=== PATIENT | female | born 1935 | race Caucasian/White ===

== ENCOUNTER 2020-05-22 10:51 | Emergency (ER) | payer OTHER ==
[~2020-05-22] VITALS: Ht 162.5 cm; Wt 45.4 kg
[~2020-05-22 10:51] MED LIST: AMLODIPINE BESYL5 MG PO; CARBAMAZEPINE200 M1 PO; CLARITIN10 MG PO; DARVOCET N 1001 TAB PO; EPI EZ PEN1 MG/ML IM; HYDR25T PO; K-LOR 20MEQ20 ME1 PO; KEFLEX500 MG PO; NKHM; TEGRETOL100 MG PO; VICODIN 5/500 505 MG PO; VICODIN 500 MG-1 TAB PO; ZIAC 10 MG-6.251 TAB PO; ZOFRAN4 MG PO; ZONEGRAN100 MG PO
[2020-05-22 11:38] LABS: ACT PARTIAL THROMBO TIME 26.5 SECONDS (20.0-32.1); BASO % 0.3 % (0.0-1.0); EOS # 0.2 10*3/uL (0.0-0.4); EOS % 1.8 % (1.0-4.0); HEMATOCRIT 40.1 % (37.0-47.0); LYMPH # 1.5 10*3/uL (1.3-4.4); LYMPH % 15.6 % (27.0-41.0); MEAN CELL VOLUME 98.3 fl (81.0-99.0); MEAN CORPUSCULAR HGB 30.9 pg (27.0-31.0); MEAN CORPUSCULAR HGB CONC 31.4 g/dl (33.0-37.0); MEAN PLATELET VOLUME 9.2 fl (9.6-12.3); MONO # 0.8 10*3/uL (0.1-1.0); MONO % 7.7 % (3.0-9.0); NEUT # 7.3 10*3/uL (2.3-7.9); PLATELET COUNT AUTOMATED 208 10*3/uL (130-400); RED BLOOD COUNT 4.08 10*6/uL (4.10-5.10); RED CELL DISTRI WIDTH 12.3 % (0-14.5); WHITE BLOOD COUNT 9.8 10*3/uL (4.8-10.8)
[2020-05-22 11:40] LABS: BUN 17 mg/dl (7-24); CHLORIDE 106 mmol/L (98-107); CREATININE 0.82 mg/dL (0.55-1.02); POTASSIUM 3.3 mmol/L (3.5-5.1); SODIUM 140 mmol/L (136-145)
== END 2020-05-22 14:32 ==
LOC: ED 10:51
PROVIDERS: Emergency Medicine
DX: S79.912A Unspecified injury of left hip, initial encounter (principal); I10 Essential (primary) hypertension; Z79.899 Other long term (current) drug therapy; W18.39XA Other fall on same level, initial encounter; Y93.89 Activity, other specified; Y92.098 Other place in other non-institutional residence as the place of occurrence of the external cause; Y99.8 Other external cause status

== ENCOUNTER 2020-08-19 21:44 | Emergency (ER) | payer OTHER | END 2020-08-20 00:37 | disposition home or self-care (01) | LOC: ED 21:44 | DX: S01.01XA Laceration without foreign body of scalp, initial encounter (principal); S09.90XA Unspecified injury of head, initial encounter; I10 Essential (primary) hypertension; Z79.899 Other long term (current) drug therapy; Z90.711 Acquired absence of uterus with remaining cervical stump; Z98.890 Other specified postprocedural states; W22.8XXA Striking against or struck by other objects, initial encounter; Y93.89 Activity, other specified; Y92.89 Other specified places as the place of occurrence of the external cause; Y99.8 Other external cause status ==

== ENCOUNTER 2020-12-24 13:45 | Emergency (ER) | payer OTHER ==
[~2020-12-24] VITALS: Ht 157.4 cm; Wt 47.6 kg
[2020-12-24] MEDS ORDERED: PERCOCET 5-3251 EACH PO (18:09)
== END 2020-12-24 18:56 | disposition home or self-care (01) ==
LOC: ED 13:45
DX: S52.502A Unspecified fracture of the lower end of left radius, initial encounter for closed fracture (principal); W18.39XA Other fall on same level, initial encounter; Y93.73 Activity, racquet and hand sports; Y92.89 Other specified places as the place of occurrence of the external cause; Y99.8 Other external cause status

== ENCOUNTER 2021-03-14 18:24 | Emergency (ER) | payer OTHER ==
[~2021-03-14] VITALS: Ht 162.6 cm; Wt 48.1 kg
[~2021-03-14 18:24] MED LIST changes: +PERCOCET 5-3251 EACH PO
[2021-03-14 19:24] LABS: BASO % 0.3 % (0.0-1.0); EOS # 0.2 10*3/uL (0.0-0.4); HEMATOCRIT 37.2 % (37.0-47.0); LYMPH # 1.8 10*3/uL (1.3-4.4); LYMPH % 20.7 % (27.0-41.0); MEAN CELL VOLUME 97.4 fl (81.0-99.0); MEAN CORPUSCULAR HGB 30.1 pg (27.0-31.0); MEAN CORPUSCULAR HGB CONC 30.9 g/dl (33.0-37.0); MEAN PLATELET VOLUME 9.1 fl (9.6-12.3); MONO # 0.9 10*3/uL (0.1-1.0); MONO % 10.8 % (3.0-9.0); NEUT # 5.6 10*3/uL (2.3-7.9); NEUT % 65.4 % (47.0-73.0); PLATELET COUNT AUTOMATED 244 10*3/uL (130-400); RED BLOOD COUNT 3.82 10*6/uL (4.10-5.10); RED CELL DISTRI WIDTH 13.2 % (0-14.5); WHITE BLOOD COUNT 8.6 10*3/uL (4.8-10.8)
[2021-03-14 19:40] LABS: ALKALINE PHOSPHATASE 131 U/L (45-117); BUN 20 mg/dl (7-24); CHLORIDE 111 mmol/L (98-107); CREATININE 0.64 mg/dL (0.55-1.02); SGOT/AST 23 IU/L (3-35); SGPT/ALT 18 U/L (12-78); SODIUM 139 mmol/L (136-145); TOTAL PROTEIN 6.4 gm/dL (6.4-8.2)
== END 2021-03-14 23:50 | disposition short-term general hospital (02) ==
LOC: ED 18:24
PROVIDERS: Physician Assistant
DX: S01.81XA Laceration without foreign body of other part of head, initial encounter (principal); W18.39XA Other fall on same level, initial encounter; Y93.89 Activity, other specified; Y92.89 Other specified places as the place of occurrence of the external cause; Y99.8 Other external cause status

== ENCOUNTER 2021-04-08 12:27 | Emergency (ER) | payer OTHER ==
[~2021-04-08] VITALS: Ht 5.1 cm; Wt 49.9 kg
[2021-04-08 12:49] LABS: BASO % 0.6 % (0.0-1.0); EOS # 0.2 10*3/uL (0.0-0.4); EOS % 3.3 % (1.0-4.0); LYMPH # 1.7 10*3/uL (1.3-4.4); LYMPH % 24.2 % (27.0-41.0); MEAN CELL VOLUME 96.6 fl (81.0-99.0); MEAN CORPUSCULAR HGB 30.5 pg (27.0-31.0); MEAN CORPUSCULAR HGB CONC 31.6 g/dl (33.0-37.0); MONO # 0.5 10*3/uL (0.1-1.0); MONO % 6.7 % (3.0-9.0); NEUT # 4.6 10*3/uL (2.3-7.9); NEUT % 64.5 % (47.0-73.0); PLATELET COUNT AUTOMATED 250 10*3/uL (130-400); RED BLOOD COUNT 4.66 10*6/uL (4.10-5.10); RED CELL DISTRI WIDTH 14.7 % (0-14.5); WHITE BLOOD COUNT 7.1 10*3/uL (4.8-10.8)
[2021-04-08 13:05] LABS: ALBUMIN 3.9 gm/dl (3.1-4.5); ALKALINE PHOSPHATASE 117 U/L (45-117); BUN 17 mg/dl (7-24); CHLORIDE 108 mmol/L (98-107); CREATININE 0.67 mg/dL (0.55-1.02); SGOT/AST 28 IU/L (3-35); SGPT/ALT 11 U/L (12-78); SODIUM 138 mmol/L (136-145); TOTAL PROTEIN 7.6 gm/dL (6.4-8.2)
[2021-04-08 15:56] LABS: BILIRUBIN Negative (Negative); BLOOD Negative (Negative); CLARITY Clear (Clear); COLOR Yellow (Yellow); GLUCOSE Negative (Negative); KETONE Trace (Negative); LEUKO ESTERASE 1+ (Negative); NITRITE Negative (Negative)
[2021-04-08 16:59] LABS: BACTERIA 2+; RBC 0-2 rbc/hpf (0-2); WBC 0-2 wbc/hpf (0-5)
[2021-04-08] MEDS ORDERED: MACROBID100 M1 PO (17:47)
== END 2021-04-08 19:09 | disposition home or self-care (01) ==
LOC: ED 12:27
PROVIDERS: Physician Assistant
DX: N39.0 Urinary tract infection, site not specified (principal); R41.82 Altered mental status, unspecified; Z79.899 Other long term (current) drug therapy; Z90.711 Acquired absence of uterus with remaining cervical stump; Z98.890 Other specified postprocedural states

== ENCOUNTER 2021-08-05 10:23 | Inpatient (IN) | payer OTHER ==
[~2021-08-05] VITALS: Ht 163 cm; Wt 50.0 kg
[~2021-08-05 10:23] MED LIST changes: +MACROBID100 M1 PO
[2021-08-05 10:36] VITALS: BP 156/77
[2021-08-05 11:05] LABS: BASO % 0.2 % (0.0-1.0); EOS # 0.2 10*3/uL (0.0-0.4); EOS % 2.4 % (1.0-4.0); LYMPH # 2.1 10*3/uL (1.3-4.4); LYMPH % 23.7 % (27.0-41.0); MEAN CELL VOLUME 89.9 fl (81.0-99.0); MEAN CORPUSCULAR HGB 29.2 pg (27.0-31.0); MEAN CORPUSCULAR HGB CONC 32.5 g/dl (33.0-37.0); MEAN PLATELET VOLUME 9.2 fl (9.6-12.3); MONO # 0.8 10*3/uL (0.1-1.0); MONO % 8.4 % (3.0-9.0); NEUT # 5.8 10*3/uL (2.3-7.9); NEUT % 64.5 % (47.0-73.0); PLATELET COUNT AUTOMATED 268 10*3/uL (130-400); RED BLOOD COUNT 4.45 10*6/uL (4.10-5.10); RED CELL DISTRI WIDTH 13.6 % (0-14.5)
[2021-08-05] MEDS ORDERED: CARAFATE1 G1 PO (11:25)
[2021-08-05] MEDS ORDERED: Sinemet Cr 50/21 TAB PO (11:27)
[2021-08-05] MEDS ORDERED: SODIUM BICARBO650 MG PO (11:28)
[2021-08-05 11:30] LABS: ALKALINE PHOSPHATASE 100 U/L (45-117); BUN 27 mg/dl (7-24); CHLORIDE 110 mmol/L (98-107); CREATININE 0.66 mg/dL (0.55-1.02); LIPASE 59 U/L (73-393); POTASSIUM 4.1 mmol/L (3.5-5.1); SGOT/AST 16 IU/L (3-35); SGPT/ALT 17 U/L (12-78); SODIUM 139 mmol/L (136-145); TOTAL PROTEIN 6.6 gm/dL (6.4-8.2)
[2021-08-05] MEDS ORDERED: HEARTBURN RELIE20 MG PO (11:31)
[2021-08-05] MEDS ORDERED: PRAVASTATIN SOD20 MG PO (11:32)
[2021-08-05] MEDS ORDERED: OMEPRAZOLE40 MG PO (11:33)
[2021-08-05] MEDS ORDERED: RA CALCIUM 6001 EAC1 PO (11:37)
[2021-08-05 12:00] VITALS: BP 178/98
[2021-08-05 12:09] LABS: BILIRUBIN Negative (Negative); BLOOD Trace-Lysed (Negative); CLARITY Cloudy (Clear); COLOR Yellow (Yellow); GLUCOSE Negative (Negative); KETONE Negative (Negative); LEUKO ESTERASE 3+ (Negative); NITRITE Positive (Negative); SPECIFIC GRAVITY 1.015 (1.001-1.030)
[2021-08-05 12:37] LABS: BACTERIA 4+; WBC TNTC wbc/hpf (0-5)
[2021-08-05 13:27] VITALS: BP 160/70
[2021-08-05 14:35] VITALS: BP 184/83
[2021-08-05 20:00] VITALS: BP 178/98
[2021-08-05 22:52] VITALS: BP 123/52
[2021-08-06] VITALS (7 sets, daily range): BP systolic 149–183; BP diastolic 60–72
[2021-08-06 06:11] LABS: CHLORIDE 112 mmol/L (98-107); CREATININE 0.64 mg/dL (0.55-1.02); POTASSIUM 3.8 mmol/L (3.5-5.1); SGOT/AST 15 IU/L (3-35); SGPT/ALT 18 U/L (12-78); SODIUM 142 mmol/L (136-145)
[2021-08-06 06:18] LABS: ALKALINE PHOSPHATASE 83 U/L (45-117); FREE T4 0.85 ng/dl (0.76-1.46); TOTAL PROTEIN 5.7 gm/dL (6.4-8.2)
[2021-08-06 06:19] LABS: BASO % 0.7 % (0.0-1.0); EOS # 0.3 10*3/uL (0.0-0.4); EOS % 4.4 % (1.0-4.0); HEMATOCRIT 37.4 % (37.0-47.0); LYMPH # 2.2 10*3/uL (1.3-4.4); LYMPH % 38.9 % (27.0-41.0); MEAN CELL VOLUME 92.1 fl (81.0-99.0); MEAN CORPUSCULAR HGB 29.8 pg (27.0-31.0); MEAN CORPUSCULAR HGB CONC 32.4 g/dl (33.0-37.0); MEAN PLATELET VOLUME 9.5 fl (9.6-12.3); MONO # 0.7 10*3/uL (0.1-1.0); NEUT # 2.4 10*3/uL (2.3-7.9); NEUT % 41.9 % (47.0-73.0); PLATELET COUNT AUTOMATED 257 10*3/uL (130-400); RED BLOOD COUNT 4.06 10*6/uL (4.10-5.10); RED CELL DISTRI WIDTH 13.7 % (0-14.5); WHITE BLOOD COUNT 5.7 10*3/uL (4.8-10.8)
[2021-08-06 06:20] LABS: BUN 17 mg/dl (7-24)
[2021-08-07] VITALS (8 sets, daily range): BP systolic 122–192; BP diastolic 57–88
[2021-08-08 08:00] VITALS: BP 178/80
[2021-08-08 12:00] VITALS: BP 126/45
[2021-08-08 16:00] VITALS: BP 136/74
[2021-08-08 20:00] VITALS: BP 121/50
[2021-08-09] VITALS (8 sets, daily range): BP systolic 120–179; BP diastolic 52–80
[2021-08-09 06:24] LABS: BASO % 0.4 % (0.0-1.0); EOS # 0.3 10*3/uL (0.0-0.4); EOS % 3.5 % (1.0-4.0); HEMATOCRIT 40.8 % (37.0-47.0); LYMPH # 2.6 10*3/uL (1.3-4.4); LYMPH % 36.1 % (27.0-41.0); MEAN CELL VOLUME 91.3 fl (81.0-99.0); MEAN CORPUSCULAR HGB 29.8 pg (27.0-31.0); MEAN CORPUSCULAR HGB CONC 32.6 g/dl (33.0-37.0); MEAN PLATELET VOLUME 9.3 fl (9.6-12.3); MONO # 0.8 10*3/uL (0.1-1.0); NEUT # 3.4 10*3/uL (2.3-7.9); NEUT % 48.4 % (47.0-73.0); PLATELET COUNT AUTOMATED 240 10*3/uL (130-400); RED BLOOD COUNT 4.47 10*6/uL (4.10-5.10); RED CELL DISTRI WIDTH 13.8 % (0-14.5); WHITE BLOOD COUNT 7.1 10*3/uL (4.8-10.8)
[2021-08-09 06:37] LABS: CREATININE 0.71 mg/dL (0.55-1.02)
[2021-08-10] VITALS: BP 129/61
[2021-08-10 08:00] VITALS: BP 149/69
[2021-08-10 12:00] VITALS: BP 147/64
[2021-08-10 16:00] VITALS: BP 114/80
[2021-08-10 20:00] VITALS: BP 150/60
[2021-08-11] VITALS: BP 165/73
[2021-08-11 07:33] VITALS: BP 148/85
[2021-08-11 12:00] VITALS: BP 107/49
[2021-08-11 16:00] VITALS: BP 125/62
[2021-08-11 20:00] VITALS: BP 139/57
[2021-08-12] VITALS: BP 140/64
[2021-08-12 06:19] LABS: BASO # 0.1 10*3/uL (0.0-0.1); BASO % 0.6 % (0.0-1.0); EOS # 0.3 10*3/uL (0.0-0.4); EOS % 3.7 % (1.0-4.0); HEMATOCRIT 44.4 % (37.0-47.0); LYMPH # 3.7 10*3/uL (1.3-4.4); MEAN CELL VOLUME 91.2 fl (81.0-99.0); MEAN CORPUSCULAR HGB CONC 31.8 g/dl (33.0-37.0); MEAN PLATELET VOLUME 9.4 fl (9.6-12.3); MONO # 0.9 10*3/uL (0.1-1.0); MONO % 11.3 % (3.0-9.0); NEUT # 3.3 10*3/uL (2.3-7.9); NEUT % 39.3 % (47.0-73.0); PLATELET COUNT AUTOMATED 278 10*3/uL (130-400); RED BLOOD COUNT 4.87 10*6/uL (4.10-5.10); RED CELL DISTRI WIDTH 13.7 % (0-14.5); WHITE BLOOD COUNT 8.3 10*3/uL (4.8-10.8)
[2021-08-12 08:00] VITALS: BP 133/64
[2021-08-12] MEDS ORDERED: HYDROCODONE-AC1 EAC1 PO (09:35)
== END 2021-08-12 10:00 | DRG 689 ==
LOC: ED 10:23 → EDHOLD 13:28 → 5E 13:28
PROVIDERS: Emergency Medicine; Internal Medicine; ADMIT Internal Medicine; ATTEND Internal Medicine
DX: N39.0 Urinary tract infection, site not specified (principal); G93.41 Metabolic encephalopathy; E43 Unspecified severe protein-calorie malnutrition; Z68.1 Body mass index [BMI] 19.9 or less, adult; G20 Parkinson's disease; E86.0 Dehydration; M15.9 Polyosteoarthritis, unspecified; I10 Essential (primary) hypertension; B96.20 Unspecified Escherichia coli [E. coli] as the cause of diseases classified elsewhere; K21.9 Gastro-esophageal reflux disease without esophagitis; E78.5 Hyperlipidemia, unspecified; R55 Syncope and collapse; Z20.822 Contact with and (suspected) exposure to COVID-19; W19.XXXA Unspecified fall, initial encounter; Y93.89 Activity, other specified; Y92.89 Other specified places as the place of occurrence of the external cause; Y99.8 Other external cause status; Z82.3 Family history of stroke; Z79.899 Other long term (current) drug therapy

== ENCOUNTER 2021-12-02 18:14 | Emergency (ER) | payer OTHER ==
[~2021-12-02 18:14] MED LIST changes: +CARAFATE1 G1 PO; +HEARTBURN RELIE20 MG PO; +HYDROCODONE-AC1 EAC1 PO; +OMEPRAZOLE40 MG PO; +PRAVASTATIN SOD20 MG PO; +RA CALCIUM 6001 EAC1 PO; +SODIUM BICARBO650 MG PO; +Sinemet Cr 50/21 TAB PO
== END 2021-12-02 21:28 | disposition short-term general hospital (02) ==
LOC: ED 18:14
DX: S01.312A Laceration without foreign body of left ear, initial encounter (principal); Z79.899 Other long term (current) drug therapy; Z90.710 Acquired absence of both cervix and uterus; W18.39XA Other fall on same level, initial encounter; Y93.89 Activity, other specified; Y92.89 Other specified places as the place of occurrence of the external cause; Y99.8 Other external cause status

== ENCOUNTER 2022-07-25 13:27 | Emergency (ER) | payer MEDICARE ==
[~2022-07-25] VITALS: Ht 162.5 cm; Wt 61.2 kg
[2022-07-25 14:45] LABS: BASO % 0.4 % (0.0-1.0); EOS # 0.2 10*3/uL (0.0-0.4); EOS % 1.5 % (1.0-4.0); HEMATOCRIT 42.1 % (37.0-47.0); LYMPH # 2.3 10*3/uL (1.3-4.4); LYMPH % 23.7 % (27.0-41.0); MEAN CORPUSCULAR HGB 29.9 pg (27.0-31.0); MEAN CORPUSCULAR HGB CONC 31.8 g/dl (33.0-37.0); MEAN PLATELET VOLUME 9.2 fl (9.6-12.3); MONO # 0.9 10*3/uL (0.1-1.0); MONO % 9.7 % (3.0-9.0); NEUT # 6.2 10*3/uL (2.3-7.9); NEUT % 63.5 % (47.0-73.0); PLATELET COUNT AUTOMATED 248 10*3/uL (130-400); RED BLOOD COUNT 4.48 10*6/uL (4.10-5.10); RED CELL DISTRI WIDTH 13.4 % (0-14.5); WHITE BLOOD COUNT 9.7 10*3/uL (4.8-10.8)
[2022-07-25 14:52] LABS: ALKALINE PHOSPHATASE 107 U/L (46-116); BUN 12 mg/dl (9-23); CHLORIDE 103 mmol/L (98-107); POTASSIUM 4.2 mmol/L (3.4-5.1); SGPT/ALT 8 U/L (10-49); TOTAL PROTEIN 7.3 gm/dL (6.0-8.0)
[2022-07-25 15:14] LABS: BILIRUBIN Negative (Negative); BLOOD Negative (Negative); CLARITY Clear (Clear); COLOR Yellow (Yellow); GLUCOSE Negative (Negative); KETONE Negative (Negative); LEUKO ESTERASE 2+ (Negative); NITRITE Negative (Negative); SPECIFIC GRAVITY 1.015 (1.001-1.030)
[2022-07-25 15:20] LABS: BACTERIA 3+; WBC 16-20 wbc/hpf (0-5)
[2022-07-25] MEDS ORDERED: AMLODIPINE BESYL5 MG PO (15:23)
[2022-07-25] MEDS ORDERED: OMNICEF300 MG PO (16:33)
== END 2022-07-25 17:46 ==
LOC: ED 13:27
PROVIDERS: Internal Medicine
DX: S01.01XA Laceration without foreign body of scalp, initial encounter (principal); Z79.899 Other long term (current) drug therapy; Z90.710 Acquired absence of both cervix and uterus; Z98.890 Other specified postprocedural states; W18.39XA Other fall on same level, initial encounter; Y93.89 Activity, other specified; Y92.89 Other specified places as the place of occurrence of the external cause; Y99.8 Other external cause status

== ENCOUNTER 2022-09-21 07:09 | Emergency (ER) | payer OTHER ==
[~2022-09-21] VITALS: Ht 162.5 cm; Wt 58.5 kg
[~2022-09-21 07:09] MED LIST changes: +OMNICEF300 MG PO
[2022-09-21 08:12] LABS: BASO % 0.4 % (0.0-1.0); EOS # 0.2 10*3/uL (0.0-0.4); EOS % 2.5 % (1.0-4.0); HEMATOCRIT 39.3 % (37.0-47.0); LYMPH % 24.7 % (27.0-41.0); MEAN CELL VOLUME 92.3 fl (81.0-99.0); MEAN CORPUSCULAR HGB 30.3 pg (27.0-31.0); MEAN CORPUSCULAR HGB CONC 32.8 g/dl (33.0-37.0); MEAN PLATELET VOLUME 8.8 fl (9.6-12.3); MONO # 0.7 10*3/uL (0.1-1.0); MONO % 8.5 % (3.0-9.0); NEUT % 63.3 % (47.0-73.0); PLATELET COUNT AUTOMATED 260 10*3/uL (130-400); RED BLOOD COUNT 4.26 10*6/uL (4.10-5.10); RED CELL DISTRI WIDTH 12.9 % (0-14.5)
[2022-09-21 08:20] LABS: ACT PARTIAL THROMBO TIME 21.3 SECONDS (20.0-32.1)
[2022-09-21 08:32] LABS: ALKALINE PHOSPHATASE 95 U/L (46-116); BUN 11 mg/dl (9-23); CHLORIDE 107 mmol/L (98-107); LIPASE 28 U/L (12-53); SGPT/ALT 10 U/L (10-49); TOTAL PROTEIN 7.5 gm/dL (6.0-8.0)
[2022-09-21] MEDS ORDERED: HYDROCODONE-AC1 EAC1 PO (10:28)
== END 2022-09-21 10:54 ==
LOC: ED 07:09
PROVIDERS: Emergency Medicine
DX: R07.89 Other chest pain (principal); Z90.710 Acquired absence of both cervix and uterus; Z98.890 Other specified postprocedural states; Z90.49 Acquired absence of other specified parts of digestive tract

== ENCOUNTER 2023-06-29 16:24 | Emergency (ER) | payer OTHER ==
[~2023-06-29 16:24] MED LIST changes: +ACETAMINOPHEN325 M2 PO; +AMLODIPINE BESY10 MG PO; +ASPIRIN ADULT L81 M2 PO; +ATORVASTATIN CA40 M1 PO; +B121000 MCG/1 IM; +CELECOXIB100 M1 PO; +CIPRO500 MG PO; +CLOPIDOGREL75 MG PO; +DULOXETINE HCL60 MG PO; +K-TAB20 MEQ PO; +LASIX40 MG PO; +LOPERAMIDE HCL2 MG PO; +MELATONIN10 M2 PO; +MIRALAX119 GM PO; +ONDANSETRON HYDR4 M1 PO; +OXYCODONE-ACET1 EAC3 PO; +SEPTDS PO; +SINEMET 25-1001 EACH PO; +VITAMIN B-625 M1 PO; +VITAMIN D250 MC1 PO
[2023-06-29] MEDS ORDERED: Tdap Vaccine 0.5 ML SYR (Adult Vaccine) IM ONE (16:30)
== END 2023-06-29 17:39 | disposition home or self-care (01) ==
LOC: ED 16:24
DX: S00.03XA Contusion of scalp, initial encounter (principal); Z90.710 Acquired absence of both cervix and uterus; Z98.890 Other specified postprocedural states; Z90.49 Acquired absence of other specified parts of digestive tract; W05.0XXA Fall from non-moving wheelchair, initial encounter; Y93.89 Activity, other specified; Y92.009 Unspecified place in unspecified non-institutional (private) residence as the place of occurrence of the external cause; Y99.8 Other external cause status

== ENCOUNTER 2023-09-25 19:13 | Emergency (ER) | payer MEDICARE ==
[~2023-09-25] VITALS: Ht 162.5 cm; Wt 55.8 kg
[~2023-09-25 19:13] MED LIST changes: +AMOXICILLIN875 MG PO; +ANTACID CHEWAB1 EACH PO; +ANTI-DIARRHEAL2 MG PO; +ONDANSETRON4 MG SL; +PINK BISMUTH262 MG PO; +VITAMIN B650 M1 PO; +VITAMIN D350 MCG PO
[2023-09-25] MEDS ORDERED: CEPHALEXIN250 MG PO (19:37)
[2023-09-25] MEDS ORDERED: HYDROCODONE-AC1 EAC1 PO (19:39)
[2023-09-25] MEDS ORDERED: HYOSCYAMINE0.125 M3 PO (19:40)
[2023-09-25] MEDS ORDERED: ATIVAN0.5 MG PO (19:45)
[2023-09-25] MEDS ORDERED: MORPHINE S100 MG/5 M PO (19:47)
== END 2023-09-25 22:10 | disposition home or self-care (01) ==
LOC: ED 19:13
DX: S00.83XA Contusion of other part of head, initial encounter (principal); Z79.899 Other long term (current) drug therapy; Z90.711 Acquired absence of uterus with remaining cervical stump; W05.0XXA Fall from non-moving wheelchair, initial encounter; Y93.89 Activity, other specified; Y92.128 Other place in nursing home as the place of occurrence of the external cause; Y99.8 Other external cause status